=== PATIENT | female | born 1995 | race Caucasian/White ===

== ENCOUNTER 2024-11-16 16:18 | Emergency (ER) | payer BC ==
[2024-11-16 17:03] LABS: BASOPHILS ABSOLUTE AUTO 0.03 K/uL (0.00-0.20); BASOPHILS PERCENT AUTO 0.3 % (0.0-1.0); EOSINOPHILS ABSOLUTE AUTO 0.08 K/uL (0.00-0.45); EOSINOPHILS PERCENT AUTO 0.8 % (0.0-6.0); HEMATOCRIT 40.5 % (37.0-47.0); HEMOGLOBIN 13.7 g/dL (12.0-16.0); IMMATURE GRAN ABSOLUTE AUTO 0.03 K/uL (0.00-0.05); IMMATURE GRAN PERCENT AUTO 0.3 % (0.0-0.4); LYMPHOCYTES ABSOLUTE AUTO 2.86 K/uL (1.00-4.80); MEAN CORPUSCULAR HEMOGLOBIN 30.2 pg (28.0-32.0); MEAN CORPUSCULAR HGB CONC 33.8 g/dL (32.0-36.0); MEAN CORPUSCULAR VOLUME 89.2 fL (83.0-99.0); MEAN PLATELET VOLUME 10.4 fL (9.4-12.3); MONOCYTES PERCENT AUTO 5.7 % (0.0-8.0); NEUTROPHILS ABSOLUTE AUTO 7.01 K/uL (1.80-7.70); NEUTROPHILS PERCENT AUTO 65.9 % (41.0-71.0); PLATELET COUNT,PLT 296 K/uL (150-400); RED BLOOD CELL COUNT 4.54 M/uL (4.10-5.30); WHITE BLOOD CELL COUNT,WBC 10.61 K/uL (3.9-11.3)
[2024-11-16] MEDS: Ketorolac 30 MG/ML SDV IVPUSH ONE (17:13)
[2024-11-16] MEDS: Ondansetron 4 MG/2 ML SDV IVPUSH ONE (17:17)
[2024-11-16] MEDS: Sodium Chloride 0.9% 1,000 ML IV ONE (17:17)
[2024-11-16 17:20] LABS: APPEARANCE,URINE CLEAR; BILIRUBIN,URINE NEGATIVE (NEGATIVE); COLOR,URINE YELLOW; GLUCOSE,URINE NEGATIVE (NEGATIVE); KETONES,URINE NEGATIVE (NEGATIVE); LEUKOCYTE ESTERASE,URINE NEGATIVE (NEGATIVE); NITRITE,URINE NEGATIVE (NEGATIVE); OCCULT BLOOD,URINE SMALL (NEGATIVE); PH,URINE 5.5 (5.0-8.0); PROTEIN,URINE NEGATIVE (NEGATIVE); UROBILINOGEN,URINE 0.2 EU/dL (<2.0)
[2024-11-16 17:31] LABS: BACTERIA,URINE FEW (NEGATIVE); EPITHELIAL CELLS,URINE FEW (NONE-FEW); RBC,URINE 0-2 (0-2/HPF); WBC,URINE 0-4 (0-5/HPF)
[2024-11-16 17:37] LABS: A/G RATIO 1.3 (0.9-1.6); ALBUMIN 4.5 g/dL (3.4-5.0); BILIRUBIN TOTAL 0.3 mg/dL (0.2-1.0); CALCIUM 10.4 mg/dL (8.5-10.1); CARBON DIOXIDE,CO2 24.9 mmol/L (21.0-32.0); CREATININE 0.7 mg/dL (0.6-1.0); EST CRCL DRUG DOSING (CG) 125.71 mL/min; POTASSIUM,K 4.2 mmol/L (3.5-5.1); PROTEIN TOTAL,TP 7.9 g/dL (6.4-8.2)
[2024-11-20] MEDS ORDERED: Morphine 2 MG/ML SYRINGE IVPUSH PRN (16:12)
[2024-11-20] MEDS ORDERED: Metoclopramide 10 MG/2 ML SDV IVPUSH PRN (16:12)
[2024-11-20] MEDS ORDERED: fentaNYL 50 MCG/ML SDV IVPUSH PRN (16:12)
[2024-11-20] MEDS ORDERED: HYDROmorphone 1 MG/ML Syringe IVPUSH PRN (16:12)
[2024-11-20] MEDS ORDERED: Phenylephrine HCl In 0.9% NaCl 1 MG/10 ML Syringe IVPUSH PRN (16:12)
[2024-11-20] MEDS ORDERED: Ondansetron 4 MG/2 ML SDV IVPUSH PRN (16:12)
[2024-11-20] MEDS ORDERED: Naloxone 0.4 MG/ML SDV IVPUSH PRN (16:12)
[2024-11-20] MEDS ORDERED: Albuterol 0.083% 2.5 MG/3 ML Neb Soln NEB PRN (16:12)
== END 2024-11-16 19:00 | disposition home or self-care (01) ==
LOC: MW.ED 16:18
DX: O03.4 Incomplete spontaneous abortion without complication (principal); Z79.84 Long term (current) use of oral hypoglycemic drugs
CPT/HCPCS: 36415; 76857; 80053; 81001; 83690; 84702; 85025; 96361; 96374; 96375; 99284; J2405; J7030; 99283

== ENCOUNTER 2024-11-20 12:08 | Day surgery (SDC) | payer BC ==
[2024-11-20] MEDS ORDERED: Sodium Chloride 0.9% 10 ML Syringe FLUSH PRN (12:10)
[2024-11-20] MEDS ORDERED: Sodium Chloride 0.9% 2.5 ML Syringe FLUSH PRN (12:10)
[2024-11-20 12:43] LABS: BASOPHILS ABSOLUTE AUTO 0.03 K/uL (0.00-0.20); BASOPHILS PERCENT AUTO 0.3 % (0.0-1.0); EOSINOPHILS ABSOLUTE AUTO 0.08 K/uL (0.00-0.45); EOSINOPHILS PERCENT AUTO 0.9 % (0.0-6.0); HEMOGLOBIN 14.2 g/dL (12.0-16.0); IMMATURE GRAN ABSOLUTE AUTO 0.02 K/uL (0.00-0.05); IMMATURE GRAN PERCENT AUTO 0.2 % (0.0-0.4); LYMPHOCYTES ABSOLUTE AUTO 2.19 K/uL (1.00-4.80); LYMPHOCYTES PERCENT AUTO 24.5 % (24.0-44.0); MEAN CORPUSCULAR HEMOGLOBIN 30.3 pg (28.0-32.0); MEAN CORPUSCULAR HGB CONC 33.8 g/dL (32.0-36.0); MEAN CORPUSCULAR VOLUME 89.7 fL (83.0-99.0); MEAN PLATELET VOLUME 10.3 fL (9.4-12.3); MONOCYTES ABSOLUTE AUTO 0.49 K/uL (0.00-0.80); MONOCYTES PERCENT AUTO 5.5 % (0.0-8.0); NEUTROPHILS ABSOLUTE AUTO 6.12 K/uL (1.80-7.70); NEUTROPHILS PERCENT AUTO 68.6 % (41.0-71.0); PLATELET COUNT,PLT 289 K/uL (150-400); RED BLOOD CELL COUNT 4.68 M/uL (4.10-5.30); WHITE BLOOD CELL COUNT,WBC 8.93 K/uL (3.9-11.3)
[2024-11-20] MEDS: Sodium Chloride 0.9% 1,000 ML IV ONE (12:54)
[2024-11-20 13:04] LABS: APPEARANCE,URINE CLOUDY; BILIRUBIN,URINE NEGATIVE (NEGATIVE); COLOR,URINE ORANGE; GLUCOSE,URINE NEGATIVE (NEGATIVE); KETONES,URINE TRACE mg/dL (NEGATIVE); LEUKOCYTE ESTERASE,URINE TRACE (NEGATIVE); NITRITE,URINE NEGATIVE (NEGATIVE); OCCULT BLOOD,URINE LARGE (NEGATIVE); PH,URINE 6.5 (5.0-8.0); PROTEIN,URINE 100 mg/dL (NEGATIVE)
[2024-11-20 13:14] LABS: BACTERIA,URINE 2+ (NEGATIVE); EPITHELIAL CELLS,URINE FEW (NONE-FEW); MUCUS,URINE LIGHT (NONE-MOD); RBC,URINE 75-100 (0-2/HPF)
[2024-11-20 13:38] LABS: A/G RATIO 1.2 (0.9-1.6); ALBUMIN 4.4 g/dL (3.4-5.0); BILIRUBIN TOTAL 0.6 mg/dL (0.2-1.0); CALCIUM 9.6 mg/dL (8.5-10.1); CARBON DIOXIDE,CO2 25.8 mmol/L (21.0-32.0); CREATININE 0.7 mg/dL (0.6-1.0); EST CRCL DRUG DOSING (CG) 125.71 mL/min; MAGNESIUM 2.1 mg/dL (1.8-2.4); POTASSIUM,K 3.8 mmol/L (3.5-5.1); PROTEIN TOTAL,TP 8.1 g/dL (6.4-8.2)
[2024-11-20] MEDS: cefTRIAXone 1 GM in Sodium Chloride 0.9% 50 ML IV ONE (15:02)
[2024-11-20] MEDS ORDERED: fentaNYL 100 MCG/2 ML SDV ONE (16:00)
[2024-11-20] MEDS ORDERED: Midazolam 1 MG/ML 2 ML SDV ONE (16:00)
[2024-11-20] MEDS ORDERED: Propofol 200 MG/20 ML SDV ONE (16:00)
[2024-11-20] MEDS ORDERED: Lidocaine 2% 5 ML SDV ONE (16:00)
[2024-11-20] MEDS ORDERED: Oxytocin 10 Units/1 ML SDV ONE (16:50)
[2024-11-20] MEDS ORDERED: Misoprostol 200 MCG Tab ONE ×2 (16:50→16:59)
[2024-11-20] MEDS ORDERED: Tranexamic Acid 1,000 MG/10 ML Vial ONE (16:51)
[2024-11-20] MEDS ORDERED: Dexamethasone 4 MG/ML 5 ML MDV ONE (16:55)
[2024-11-20] MEDS ORDERED: Ondansetron 4 MG/2 ML SDV ONE (16:55)
[2024-11-20] MEDS ORDERED: HYDROmorphone 1 MG/ML Syringe ONE (17:33)
[2024-11-20] MEDS: Ketorolac 30 MG/ML SDV IVPUSH ONE (18:48)
== END 2024-11-20 20:28 | disposition home or self-care (01) ==
LOC: MW.ED 12:08 → MW.SDS 15:42 → MW.MS 18:12 → MW.SDS 20:28
PROVIDERS: ATTEND Obstetrics & Gynecology
DX: O02.1 Missed abortion (principal); E28.2 Polycystic ovarian syndrome
CPT/HCPCS: 36415; 59820; 76830; 80053; 81001; 83735; 84702; 85025; 86850; 86900; 86901; 87086; 96361; 96365; 99285; A9270; J0696; J1100; J1171; J2003; J2250; J2405; J2590; J2704; J3010; J7030; 59812; 99284

== ENCOUNTER 2025-05-02 03:14 | Emergency (ER) | payer OTHER ==
[2025-05-02 03:42] LABS: APPEARANCE,URINE CLEAR; GLUCOSE,URINE NEGATIVE (NEGATIVE); OCCULT BLOOD,URINE LARGE (NEGATIVE)
[2025-05-02 03:56] LABS: EPITHELIAL CELLS,URINE FEW (NONE-FEW)
== END 2025-05-02 05:03 | disposition home or self-care (01) ==
LOC: MW.ED 03:14
DX: O20.9 Hemorrhage in early pregnancy, unspecified (principal); Z3A.16 16 weeks gestation of pregnancy
CPT/HCPCS: 76805; 76805-26; 81001; 87086; 99283; 99284